=== PATIENT | male | born 1935 | race Caucasian/White ===

== ENCOUNTER 2022-03-28 12:18 | Inpatient (IN) ==
[2022-03-28 14:04] LABS: Basophils # 0.1 10*3/uL (0.0-0.2); Eosinophils # 0.1 10*3/uL (0.0-0.87); Eosinophils % 0.7 % (0.00-10.9); Hematocrit 39.5 VOL% (42.0-52.0); Hemoglobin 14.1 GM/DL (14.0-18.0); Immature Granulocytes % 5.3 %; Immature Granulocytes Absolute 0.54 #; Lymphocytes # 1.1 10*3/uL (1.4-4.0); Lymphocytes % 10.8 % (21.2-54.2); Mean Corpuscular HGB Conc 35.7 GM/DL (32-36); Mean Corpuscular Volume 93.8 FL (87-102); Monocytes # 0.8 10*3/uL (0.11-0.8); Monocytes % 7.9 % (1.7-12.7); Neutrophils % 74.3 % (38.7-73.9); Platelet Count 366 T/CUMM (130-400); Red Blood Count 4.21 MC/CUMM (3.8-5.5); Red Cell Distribution Width 12.1 % (9.3-17.3); White Blood Count 10.1 T/CUMM (4-12)
[2022-03-28 14:24] LABS: Albumin 3.4 G/DL (3.4-5.0); Bilirubin,Total 0.6 MG/DL (0.20-1.00); Calcium 9.9 MG/DL (8.5-10.1); Osmolality,Calculated 246.8 MOS/KG (273-304); Potassium 3.4 MMOL/L (3.5-5.1); Total Protein 7.9 G/DL (6.4-8.2)
[2022-03-28 14:41] LABS: Eosinophils 2 % (0-10); Lymphocytes 16 % (20-55); Total Cells Counted 100
[2022-03-28 14:42] LABS: Platelet Estimate Adequate
[2022-03-28] MEDS ORDERED: SODIUM CHLORIDE 0.9% 1,000 ML IV STA (14:51)
[2022-03-28] MEDS ORDERED: LEVOFLOXACIN INJ 750 MG/150 ML PREMIX IV STA (14:52)
[2022-03-28] MEDS ORDERED: hydrALAZINE 20 MG/1 ML VIAL IV PRN (15:23)
[2022-03-28] MEDS ORDERED: ONDANSETRON 4 MG/2 ML VIAL IV PRN (15:23)
[2022-03-28] MEDS ORDERED: MORPHINE 2 MG/1 ML SYRINGE IV PRN (15:23)
[2022-03-28] MEDS ORDERED: ACETAMINOPHEN 325 MG TABLET PO PRN (15:23)
[2022-03-28] MEDS ORDERED: POTASSIUM CHLORIDE 20 MEQ TABLET PO ONE (15:26)
[2022-03-28] MEDS: cefTRIAXone 1,000 MG in SODIUM CHLORIDE 0.9% 100 ML IV SCH (17:27)
[2022-03-28] MEDS: VANCOMYCIN INJ 1,250 MG in SODIUM CHLORIDE 0.9% 250 ML IV SCH (18:08)
[2022-03-28] MEDS: TAMSULOSIN 0.4 MG CAPSULE PO SCH (20:34)
[2022-03-28] MEDS: lisinopriL 10 MG TABLET PO SCH (20:34)
[2022-03-29 05:25] LABS: Basophils # 0.1 10*3/uL (0.0-0.2); Basophils % 1.5 % (0.0-0.8); Eosinophils # 0.2 10*3/uL (0.0-0.87); Eosinophils % 3.2 % (0.00-10.9); Hematocrit 33.9 VOL% (42.0-52.0); Hemoglobin 11.9 GM/DL (14.0-18.0); Immature Granulocytes % 5.8 %; Immature Granulocytes Absolute 0.44 #; Lymphocytes # 1.6 10*3/uL (1.4-4.0); Lymphocytes % 20.5 % (21.2-54.2); Mean Corpuscular HGB Conc 35.1 GM/DL (32-36); Mean Corpuscular Volume 95.8 FL (87-102); Mean Platelet Volume 10.4 FL (9.6-12.0); Monocytes # 0.9 10*3/uL (0.11-0.8); Monocytes % 11.5 % (1.7-12.7); Neutrophils % 57.5 % (38.7-73.9); Platelet Count 339 T/CUMM (130-400); Red Blood Count 3.54 MC/CUMM (3.8-5.5); Red Cell Distribution Width 12.2 % (9.3-17.3); White Blood Count 7.6 T/CUMM (4-12)
[2022-03-29 05:33] LABS: Calcium 8.3 MG/DL (8.5-10.1); Osmolality,Calculated 259.8 MOS/KG (273-304); Potassium 3.7 MMOL/L (3.5-5.1)
[2022-03-29] MEDS: VANCOMYCIN INJ 1,250 MG in SODIUM CHLORIDE 0.9% 250 ML IV SCH ×2 (06:22→19:08)
[2022-03-29 06:47] LABS: Anisocytosis Slight; Atypical Lymphocytes Few; Band Neutrophils 4 % (0-10); Eosinophils 3 % (0-10); Lymphocytes 25 % (20-55); Macrocytosis 1+; Platelet Estimate Normal; Total Cells Counted 100
[2022-03-29 06:48] LABS: Burr Cells Few
[2022-03-29] MEDS ORDERED: MAGNESIUM SULF RIDER 2 GM/50 ML PREMIX IV ONE (07:41)
[2022-03-29] MEDS: TAMSULOSIN 0.4 MG CAPSULE PO SCH ×2 (08:51→21:32)
[2022-03-29] MEDS: PANTOPRAZOLE 40 MG TABLET PO SCH (08:51)
[2022-03-29] MEDS: amLODIPine 5 MG TABLET PO SCH (08:51)
[2022-03-29] MEDS ORDERED: LIDOCAINE 2% 5 ML VIAL ONE (10:29)
[2022-03-29] MEDS ORDERED: fentaNYL 100 MCG/2 ML VIAL ONE (10:29)
[2022-03-29] MEDS ORDERED: propofoL 200 MG/20 ML VIAL IV ONE (10:29)
[2022-03-29] MEDS ORDERED: FAMOTIDINE 20 MG/2 ML VIAL IV ONE (10:51)
[2022-03-29] MEDS ORDERED: LACTATED RINGERS 1,000 ML IV SCH (11:30)
[2022-03-29] MEDS ORDERED: ePHEDrine 50 MG/ML VIAL ONE (11:34)
[2022-03-29] MEDS ORDERED: ONDANSETRON 4 MG/2 ML VIAL ONE (11:39)
[2022-03-29] MEDS ORDERED: SEVOFLURANE 1 UNIT/15 MINUTE INH ONE (11:39)
[2022-03-29] MEDS ORDERED: ONDANSETRON 4 MG/2 ML VIAL IV PRN (12:11)
[2022-03-29] MEDS ORDERED: HYDROmorphone 1 MG/1 ML SYRINGE ONE (12:12)
[2022-03-29] MEDS: HYDROmorphone 1 MG/1 ML SYRINGE IV PRN ×2 (12:16→12:23)
[2022-03-29] MEDS: cefTRIAXone 1,000 MG in SODIUM CHLORIDE 0.9% 100 ML IV SCH (16:03)
[2022-03-29] MEDS ORDERED: KETOROLAC 15 MG/1 ML VIAL IV PRN (16:37)
[2022-03-29] MEDS ORDERED: SENNA 8.6 MG TABLET PO ONE (20:32)
[2022-03-29] MEDS: lisinopriL 10 MG TABLET PO SCH (21:32)
[2022-03-29] MEDS: POLYETHYLENE GLYCOL POWDER 17 GM PACK PO SCH (21:32)
[2022-03-30] MEDS: FAMOTIDINE 20 MG TABLET PO PRN ×2 (04:15→09:43)
[2022-03-30] MEDS: VANCOMYCIN INJ 1,250 MG in SODIUM CHLORIDE 0.9% 250 ML IV SCH ×2 (05:15→19:58)
[2022-03-30 05:29] LABS: Basophils # 0.2 10*3/uL (0.0-0.2); Basophils % 1.4 % (0.0-0.8); Eosinophils # 0.5 10*3/uL (0.0-0.87); Eosinophils % 4.4 % (0.00-10.9); Hematocrit 39.4 VOL% (42.0-52.0); Hemoglobin 13.6 GM/DL (14.0-18.0); Immature Granulocytes % 5.8 %; Immature Granulocytes Absolute 0.61 #; Lymphocytes # 1.7 10*3/uL (1.4-4.0); Lymphocytes % 16.2 % (21.2-54.2); Mean Corpuscular HGB Conc 34.5 GM/DL (32-36); Mean Corpuscular Volume 96.8 FL (87-102); Mean Platelet Volume 10.3 FL (9.6-12.0); Monocytes # 1.1 10*3/uL (0.11-0.8); Neutrophils % 62.2 % (38.7-73.9); Platelet Count 396 T/CUMM (130-400); Red Blood Count 4.07 MC/CUMM (3.8-5.5); Red Cell Distribution Width 12.5 % (9.3-17.3); White Blood Count 10.5 T/CUMM (4-12)
[2022-03-30 05:56] LABS: Eosinophils 1 % (0-10); Lymphocytes 13 % (20-55); Platelet Estimate Normal; Total Cells Counted 100
[2022-03-30 06:21] LABS: % Iron Saturation 41.5 % (18-50); Calcium 9.1 MG/DL (8.5-10.1); Osmolality,Calculated 259.8 MOS/KG (273-304); Potassium 3.3 MMOL/L (3.5-5.1)
[2022-03-30] MEDS ORDERED: POTASSIUM CHLORIDE 20 MEQ TABLET PO ONE (07:33)
[2022-03-30] MEDS: PANTOPRAZOLE 40 MG TABLET PO SCH (09:43)
[2022-03-30] MEDS: amLODIPine 5 MG TABLET PO SCH (09:43)
[2022-03-30] MEDS: POLYETHYLENE GLYCOL POWDER 17 GM PACK PO SCH ×2 (09:43→22:43)
[2022-03-30] MEDS: TAMSULOSIN 0.4 MG CAPSULE PO SCH ×2 (09:43→22:45)
[2022-03-30] MEDS: cefTRIAXone 1,000 MG in SODIUM CHLORIDE 0.9% 100 ML IV SCH (18:48)
[2022-03-30] MEDS: lisinopriL 10 MG TABLET PO SCH (22:45)
[2022-03-31 05:11] LABS: Basophils # 0.1 10*3/uL (0.0-0.2); Basophils % 0.9 % (0.0-0.8); Eosinophils # 0.4 10*3/uL (0.0-0.87); Eosinophils % 2.9 % (0.00-10.9); Hematocrit 33.7 VOL% (42.0-52.0); Hemoglobin 12.2 GM/DL (14.0-18.0); Immature Granulocytes % 4.1 %; Lymphocytes # 1.3 10*3/uL (1.4-4.0); Lymphocytes % 10.6 % (21.2-54.2); Mean Corpuscular HGB Conc 36.2 GM/DL (32-36); Mean Corpuscular Volume 95.2 FL (87-102); Mean Platelet Volume 9.9 FL (9.6-12.0); Monocytes # 1.7 10*3/uL (0.11-0.8); Monocytes % 13.7 % (1.7-12.7); Neutrophils % 67.8 % (38.7-73.9); Platelet Count 328 T/CUMM (130-400); Red Blood Count 3.54 MC/CUMM (3.8-5.5); Red Cell Distribution Width 12.2 % (9.3-17.3); White Blood Count 12.23 T/CUMM (4-12)
[2022-03-31 05:33] LABS: Calcium 8.3 MG/DL (8.5-10.1); Osmolality,Calculated 258.8 MOS/KG (273-304); Potassium 3.4 MMOL/L (3.5-5.1)
[2022-03-31] MEDS: VANCOMYCIN INJ 1,250 MG in SODIUM CHLORIDE 0.9% 250 ML IV SCH ×2 (05:48→17:07)
[2022-03-31] MEDS ORDERED: POTASSIUM CHLORIDE 20 MEQ TABLET PO ONE (07:24)
[2022-03-31] MEDS: amLODIPine 5 MG TABLET PO SCH (09:09)
[2022-03-31] MEDS: TAMSULOSIN 0.4 MG CAPSULE PO SCH ×2 (09:09→20:51)
[2022-03-31] MEDS: POLYETHYLENE GLYCOL POWDER 17 GM PACK PO SCH ×2 (09:10→20:51)
[2022-03-31] MEDS: PANTOPRAZOLE 40 MG TABLET PO SCH (09:10)
[2022-03-31] MEDS: BISACODYL 5 MG TABLET PO SCH (14:30)
[2022-03-31 15:26] LABS: Bacteria,Urine Occasional /HPF (Few); Bilirubin,Urine Negative (Negative); Blood, Urine Trace mg/dL (Negative); Glucose,Urine (UA) Negative (Negative); Hyaline Casts,Urine 1 /LPF (0-3); Ketones,Urine Trace mg/dL (Negative); Mucus,Urine Occasional /LPF (Occasional); Nitrite,Urine Negative (Negative); Protein,Urine 30 mg/dL (Negative); RBC,Urine 14 /HPF (0-4); Squamous Epithelial Cell,Urine Occasional /HPF (0-10); Urine Appearance Clear (Clear); Urine Color Yellow (Yellow); Urine Urobilinogen 0.2 eU/dL (<2.0)
[2022-03-31] MEDS: cefTRIAXone 1,000 MG in SODIUM CHLORIDE 0.9% 100 ML IV SCH (15:27)
[2022-03-31] MEDS: lisinopriL 10 MG TABLET PO SCH (20:51)
[2022-03-31] MEDS ORDERED: SODIUM PHOSPHATE ENEMA 133 ML BOTTLE RECTAL ONE (21:59)
[2022-04-01] MEDS: VANCOMYCIN INJ 1,250 MG in SODIUM CHLORIDE 0.9% 250 ML IV SCH (06:34)
[2022-04-01 06:39] LABS: Basophils # 0.1 10*3/uL (0.0-0.2); Basophils % 0.6 % (0.0-0.8); Eosinophils # 0.1 10*3/uL (0.0-0.87); Eosinophils % 0.3 % (0.00-10.9); Hematocrit 34.6 VOL% (42.0-52.0); Hemoglobin 12.4 GM/DL (14.0-18.0); Immature Granulocytes % 3.9 %; Immature Granulocytes Absolute 0.67 #; Lymphocytes % 5.5 % (21.2-54.2); Mean Corpuscular HGB Conc 35.8 GM/DL (32-36); Mean Corpuscular Volume 96.4 FL (87-102); Mean Platelet Volume 10.4 FL (9.6-12.0); Monocytes # 1.4 10*3/uL (0.11-0.8); Monocytes % 8.4 % (1.7-12.7); Neutrophils % 81.3 % (38.7-73.9); Platelet Count 328 T/CUMM (130-400); Red Blood Count 3.59 MC/CUMM (3.8-5.5); Red Cell Distribution Width 12.5 % (9.3-17.3); White Blood Count 17.16 T/CUMM (4-12)
[2022-04-01 07:06] LABS: Band Neutrophils 1 % (0-10); Hypochromia Slight; Lymphocytes 7 % (20-55); Microcytosis Slight; Platelet Estimate Adequate; Total Cells Counted 100
[2022-04-01 07:12] LABS: Calcium 8.4 MG/DL (8.5-10.1); Osmolality,Calculated 263.5 MOS/KG (273-304); Potassium 3.1 MMOL/L (3.5-5.1)
[2022-04-01] MEDS ORDERED: LINACLOTIDE 145 MCG CAPSULE PO SCH (07:30)
[2022-04-01] MEDS: amLODIPine 5 MG TABLET PO SCH (08:02)
[2022-04-01] MEDS: PANTOPRAZOLE 40 MG TABLET PO SCH (08:02)
[2022-04-01] MEDS: BISACODYL 5 MG TABLET PO SCH (08:02)
[2022-04-01] MEDS: TAMSULOSIN 0.4 MG CAPSULE PO SCH (08:02)
[2022-04-01] MEDS: POLYETHYLENE GLYCOL POWDER 17 GM PACK PO SCH (08:03)
[2022-04-01] MEDS ORDERED: POTASSIUM CHLORIDE 20 MEQ TABLET PO ONE (15:00)
[2022-04-01] MEDS: cefTRIAXone 1,000 MG in SODIUM CHLORIDE 0.9% 100 ML IV SCH (15:00)
[2022-04-01 16:13] VITALS: BP 153/69
== END 2022-04-01 17:28 | disposition home or self-care (01) | DRG 571 ==
LOC: N.ED 12:18 → SUATTDRO 15:23 → N.EDINP 15:23 → N.2E 16:32
PROVIDERS: ADMIT Internal Medicine; ATTEND Hospitalist